=== PATIENT | female | born 1950 | race Caucasian/White ===

== ENCOUNTER 2017-05-04 09:57 | Day surgery (SDC) | payer OTHER ==
[~2017-05-04] VITALS: Ht 154.9 cm; Wt 61.6 kg
[~2017-05-04 09:57] MED LIST: ASCORBIC ACID500 M3 PO; DAILY MULTIPLE1 EACH PO; MELOXICAM7.5 MG PO; MOTRIN800 MG PO; NORCO 5/3251 TABLET PO; VITAMIN D31000 UNI2 PO; ZOFRAN4 MG PO
[2017-05-04 10:35] VITALS: BP 113/70
[2017-05-04 15:55] VITALS: BP 104/60
[2017-05-04 16:27] VITALS: BP 111/57
== END 2017-05-04 16:40 | disposition home or self-care (01) ==
LOC: SDC 09:57
PROC: 0SGN04Z Fusion of Left Metatarsal-Phalangeal Joint with Internal Fixation Device, Open Approach (ICD-10-PCS; principal; 2017-05-04)
DX: M20.32 Hallux varus (acquired), left foot (principal); Z96.642 Presence of left artificial hip joint; Z88.0 Allergy status to penicillin
CPT/HCPCS: 73630; 76000; J0690; J1100; J2250; J2405; J3010; S0020